=== PATIENT | male | born 1965 | race Caucasian/White ===

== ENCOUNTER 2021-04-24 22:28 | Inpatient (IN) | payer OTHER ==
[2021-04-24] MEDS ORDERED: ALBUTEROL SO4 2.5/IPRATROPIUM 0.5 INH SOL 3 ML VIAL.NEB. NEB ONE ×2 (23:04→23:10)
[2021-04-25] MEDS ORDERED: ASPIRIN 81 MG CHEWABLE TABLETS PO ONE (00:18)
[2021-04-25] MEDS ORDERED: PIPERACILLIN/TAZOB 4.5 GM 4.5 GM in DEXTROSE 5%-WATER 100 ML IVPB ONE (00:52)
[2021-04-25] MEDS ORDERED: VANCOMYCIN 1 GM in D5W (PRE-DOCKED) 1,000 MG/250 ML IVPB ONE (00:52)
[2021-04-25] MEDS ORDERED: ENOXAPARIN NA (PORCINE) 100 MG/1 ML DISP.SYRIN SQ ONE ×2 (00:53→01:00)
[2021-04-25] MEDS ORDERED: LACTATED RINGERS SOLUTION 1000 ML INFUS.BAG IV ONE ×2 (00:53→06:18)
[2021-04-25] MEDS ORDERED: ASPIRIN 81 MG CHEWABLE TABLETS ONE (00:59)
[2021-04-25] MEDS ORDERED: PIPERACILLIN/TAZOB 4.5 GM 4.5 GM/100 ML BAG IVPB ONE (01:00)
[2021-04-25] MEDS ORDERED: ACETAMINOPHEN 1000 MG/100 ML VIAL (NON FORMULARY) IVPB ONE ×3 (01:23→18:56)
[2021-04-25 01:24] LABS: BASO % 0.3 % (0-2.0); EOS % 0.1 % (0-4.5); HEMATOCRIT 26.7 % (35.4-49); LYMPH % 3.5 % (8-40); MCHC 33.6 g/dl (32.0-35.9); MEAN CELL VOLUME 83.5 fl (80-96); MEAN PLT VOLUME 7.1 fl (7.5-11.1); MONO % 1.8 % (3.8-10.2); NEUT % 94.3 % (42.8-82.8); PLATELET COUNT 133 10^3/uL (134-434); RDW 16.3 % (11.9-15.9); WHITE BLOOD COUNT 14.5 K/mm3 (4.0-10.0)
[2021-04-25] MEDS ORDERED: VANCOMYCIN 1 GRAM (PRE-DOCKED) 1,000 MG/250 ML BAG IVPB ONE (01:25)
[2021-04-25] MEDS ORDERED: methylPREDNISolone NA SUCC 125 MG/2 ML VIAL ONE (01:26)
[2021-04-25] MEDS ORDERED: methylPREDNISolone NA SUCC 125 MG/2 ML VIAL IVPUSH ONE (01:33)
[2021-04-25] MEDS ORDERED: ACETAMINOPHEN INJECTION 100 ML IVPB ONE (01:55)
[2021-04-25 01:56] LABS: CHLORIDE 113 mmol/L (98-107); SODIUM 145 mmol/L (136-145)
[2021-04-25 02:00] LABS: ALBUMIN 1.5 g/dl (3.4-5.0); ANION GAP 17 MMOL/L (8-16); BLOOD UREA NITROGEN 34.6 mg/dL (7-18); CALCIUM 7.9 mg/dL (8.5-10.1); CO2 15 mmol/L (21-32); GLUCOSE,RANDOM 111 mg/dL (74-106)
[2021-04-25 02:03] LABS: CREATININE 2.2 mg/dL (0.55-1.3); SGOT/AST 6 U/L (15-37)
[2021-04-25 02:05] LABS: BILIRUBIN,TOTAL 0.8 mg/dL (0.2-1); TOT PROT 5.1 g/dl (6.4-8.2)
[2021-04-25 02:06] LABS: ALK PHOS 104 U/L (45-117)
[2021-04-25 02:08] LABS: LACTIC ACID 8.4 mmol/L (0.4-2.0); N-TERMINAL BNP 7362.1 pg/ml (5-125)
[2021-04-25 02:18] LABS: SGPT/ALT < 6 U/L (13-61)
[2021-04-25] MEDS ORDERED: SODIUM CHLORIDE 0.9% 500 ML INFUS.BAG IV ONE (02:27)
[2021-04-25] MEDS ORDERED: POTASSIUM CHLORIDE TABS 20 MEQ TABLET.ER (FP) PO ONE (02:50)
[2021-04-25] MEDS ORDERED: POTASSIUM CHLORIDE ORAL LIQUID 20 MEQ/15 ML GT ONE (03:10)
[2021-04-25 03:44] LABS: ANISOCYTOSIS 2+; MACROCYTOSIS 1+; PLATELET ESTIMATE DECREASED; TEAR DROP CELLS 1+; TOXIC GRANULATION 2+
[2021-04-25 04:04] LABS: INR 1.4 (0.83-1.09); PROTHROMBIN TIME (PATIENT) 16.8 SEC (9.7-13.0)
[2021-04-25 04:07] LABS: ACTIVATED PTT 31.4 SECONDS (25.2-36.5)
[2021-04-25] MEDS ORDERED: NOREPINEPHRINE BITARTRATE 16,000 MCG in SODIUM CHLORIDE 484 ML IV SCH (04:15)
[2021-04-25 04:43] LABS: EPI CELLS 10 /uL (0-25.1); HYALINE CASTS 2 /uL (0-3.1); URINE APPEARANCE CLEAR; URINE BACTERIA 7 /uL (0-1359); URINE BILIRUBIN NEGATIVE (NEGATIVE); URINE COLOR YELLOW; URINE GLUCOSE (UA) NEGATIVE (NEGATIVE); URINE KETONE NEGATIVE (NEGATIVE); URINE LEUK ESTERASE NEGATIVE (NEGATIVE); URINE NITRITE NEGATIVE (NEGATIVE); URINE PROTEIN 1+ (NEGATIVE); URINE WBC 16 /uL (0-25.8)
[2021-04-25] MEDS ORDERED: POTASSIUM CHLORIDE ORAL LIQUID 20 MEQ/15 ML ONE (04:49)
[2021-04-25] MEDS ORDERED: KCL 10 MEQ IVPB 10 MEQ/100 ML INFUS.BAG IVPB ONE ×2 (04:49→05:41)
[2021-04-25] MEDS: KCL 10 MEQ IVPB 10 MEQ/100 ML INFUS.BAG IVPB SCH ×3 (05:05→08:33)
[2021-04-25] MEDS ORDERED: PIPERACILLIN/TAZOB 3.375 GM 3.375 GM/50 ML BAG IVPB ONE (05:25)
[2021-04-25] MEDS ORDERED: DEXTROSE 5%-0.45% SALINE 1,000 ML IV SCH ×2 (05:30)
[2021-04-25] MEDS: PIPERACILLIN/TAZOB 3.375 GM 3.375 GM in DEXTROSE 5%-WATER - 50 ML IVPB SCH ×4 (05:35→21:28)
[2021-04-25 05:46] LABS: INR 1.7 (0.83-1.09); PROTHROMBIN TIME (PATIENT) 20.3 SEC (9.7-13.0)
[2021-04-25 05:49] LABS: ACTIVATED PTT 55.3 SECONDS (25.2-36.5)
[2021-04-25 05:55] LABS: LACTIC ACID 11.1 mmol/L (0.4-2.0)
[2021-04-25 05:57] LABS: BASO % 0.1 % (0-2.0); CHLORIDE 110 mmol/L (98-107); HEMATOCRIT 24.3 % (35.4-49); HEMOGLOBIN 8.1 GM/dL (11.7-16.9); MCH 27.9 pg (25.7-33.7); MCHC 33.5 g/dl (32.0-35.9); MEAN CELL VOLUME 83.4 fl (80-96); MONO % 1.9 % (3.8-10.2); PLATELET COUNT 117 10^3/uL (134-434); RBC 2.92 M/mm3 (4.00-5.60); RDW 16.2 % (11.9-15.9); RETICULOCYTES 0.11 % (0.5-1.5); SODIUM 142 mmol/L (136-145); WHITE BLOOD COUNT 12.8 K/mm3 (4.0-10.0)
[2021-04-25 06:00] LABS: ALBUMIN 1.4 g/dl (3.4-5.0); ANION GAP 18 MMOL/L (8-16); CALCIUM 7.6 mg/dL (8.5-10.1); CO2 15 mmol/L (21-32)
[2021-04-25 06:01] LABS: BLOOD UREA NITROGEN 34.7 mg/dL (7-18); GLUCOSE,RANDOM 158 mg/dL (74-106); MAGNESIUM 1.6 mg/dL (1.8-2.4)
[2021-04-25 06:03] LABS: CREATININE 2.3 mg/dL (0.55-1.3); IRON SERUM 30 ug/dL (50-175); PHOSPHOROUS 2.1 mg/dL (2.5-4.9); SGPT/ALT < 6 U/L (13-61)
[2021-04-25 06:04] LABS: BILIRUBIN,TOTAL 0.9 mg/dL (0.2-1); TOTAL IRON BINDING CAPACITY 38 ug/dL (250-450)
[2021-04-25 06:05] LABS: TOT PROT 4.7 g/dl (6.4-8.2)
[2021-04-25 06:06] LABS: ALK PHOS 91 U/L (45-117)
[2021-04-25] MEDS ORDERED: MAGNESIUM SULF 50% (8.12 MEQ/2 ML-1 GM VIAL) IVPB ONE (06:24)
[2021-04-25 07:13] LABS: ARTERIAL BLD GAS O2 SATURATION 98.3 % (95-98); ARTERIAL BLOOD GAS BASE EXCESS -9.8 mmol/L (-2-2); ARTERIAL BLOOD GAS PO2 117.1 mmHg (80-100); ARTERIAL BLOOD GAS pH 7.389 (7.350-7.450)
[2021-04-25 07:15] LABS: ALLENS TEST POSITIVE
[2021-04-25 07:16] LABS: PT'S TEMP 98.6
[2021-04-25] MEDS ORDERED: ALBUTEROL SO4 HFA INHALER IH PRN (07:26)
[2021-04-25] MEDS ORDERED: SODIUM CHLORIDE 1,000 ML IV SCH (07:30)
[2021-04-25] MEDS ORDERED: POTASSIUM PHOSPHATE 30 MM in SODIUM CHLORIDE 500 ML IVPB ONE (07:30)
[2021-04-25 07:48] LABS: SGOT/AST 7 U/L (15-37)
[2021-04-25] MEDS: MUPIROCIN 2% TOPICAL OINTMENT FOR DECOLONIZATION NS SCH ×2 (10:29→21:54)
[2021-04-25] MEDS ORDERED: DEXTROSE 5%-WATER - 50 ML IVPB ONE ×3 (10:30→21:37)
[2021-04-25] MEDS ORDERED: PIPERACILLIN/TAZOBACTAM 3.375 GM VIAL IVPB ONE (10:30)
[2021-04-25] MEDS: BUDESONIDE/FORMETEROL FUMARATE 160/4.5 mcg INHALER IH SCH ×2 (11:00→22:07)
[2021-04-25 11:18] LABS: ANISOCYTOSIS 1+; MACROCYTOSIS 0; PLATELET ESTIMATE DECREASED
[2021-04-25] MEDS ORDERED: ALBUTEROL SO4 0.083% IH SOL 2.5 MG/3 ML VIAL.NEB. NEB PRN (11:26)
[2021-04-25 11:46] LABS: LACTIC ACID 8.9 mmol/L (0.4-2.0)
[2021-04-25] MEDS ORDERED: ONDANSETRON 4 MG/2 ML VIAL IVPUSH PRN (11:51)
[2021-04-25] MEDS ORDERED: SODIUM CHLORIDE 500 ML IV STA (11:53)
[2021-04-25] MEDS: ALBUTEROL SO4 2.5/IPRATROPIUM 0.5 INH SOL 3 ML VIAL.NEB. NEB SCH ×3 (12:45→20:15)
[2021-04-25] MEDS: HEPARIN NA (PORCINE) 5,000 UNITS/ML 1ML VIAL SQ SCH ×2 (15:00→21:55)
[2021-04-25] MEDS ORDERED: PIPERACILLIN/TAZOBACTAM 2.25 GM VIAL IVPB ONE ×2 (15:26→21:37)
[2021-04-25] MEDS: PIPERACILLIN/TAZOB 2.25 GM 2.25 GM in DEXTROSE 5%-WATER - 50 ML IVPB SCH ×2 (15:51→21:55)
[2021-04-25 16:26] LABS: LACTIC ACID 6.4 mmol/L (0.4-2.0)
[2021-04-25] MEDS ORDERED: PANTOPRAZOLE SODIUM 40 MG VIAL IVPUSH ONE (16:51)
[2021-04-25] MEDS ORDERED: PIPERACILLIN/TAZOB 3.375 GM 3.375 GM in DEXTROSE 5%-WATER - 50 ML IVPB SCH (18:00)
[2021-04-25] MEDS ORDERED: MORPHINE SULFATE 2 MG/ML VIAL IVPUSH ONE (21:47)
[2021-04-25] MEDS: CHLORHEXIDINE GLUCONATE 4% CLEANSER FOR DECOLONIZATION TP SCH (21:54)
[2021-04-25] MEDS: POLYETHYLENE GLYCOL (HEALTHYLAX) 3350 17 GM PACKET GT SCH (21:54)
[2021-04-25] MEDS ORDERED: PT OWN MED DRAWER 7, Y5N ONE (22:06)
[2021-04-25 22:45] LABS: LACTIC ACID 4.6 mmol/L (0.4-2.0)
[2021-04-26] MEDS: SODIUM CHLORIDE 1,000 ML IV SCH (02:00)
[2021-04-26] MEDS ORDERED: PIPERACILLIN/TAZOBACTAM 2.25 GM VIAL IVPB ONE ×4 (03:32→20:29)
[2021-04-26] MEDS ORDERED: DEXTROSE 5%-WATER - 50 ML IVPB ONE ×4 (03:32→20:29)
[2021-04-26] MEDS: PIPERACILLIN/TAZOB 2.25 GM 2.25 GM in DEXTROSE 5%-WATER - 50 ML IVPB SCH ×4 (03:39→21:52)
[2021-04-26] MEDS: POLYETHYLENE GLYCOL (HEALTHYLAX) 3350 17 GM PACKET GT SCH ×3 (05:28→21:55)
[2021-04-26] MEDS: HEPARIN NA (PORCINE) 5,000 UNITS/ML 1ML VIAL SQ SCH (05:29)
[2021-04-26 05:55] LABS: EOS % 0.1 % (0-4.5); HEMATOCRIT 22.3 % (35.4-49); HEMOGLOBIN 7.6 GM/dL (11.7-16.9); LYMPH % 5.1 % (8-40); MCH 27.8 pg (25.7-33.7); MCHC 33.8 g/dl (32.0-35.9); MEAN CELL VOLUME 82.2 fl (80-96); MEAN PLT VOLUME 6.6 fl (7.5-11.1); MONO % 1.9 % (3.8-10.2); NEUT % 92.9 % (42.8-82.8); PLATELET COUNT 85 10^3/uL (134-434); RBC 2.72 M/mm3 (4.00-5.60); RDW 16.6 % (11.9-15.9)
[2021-04-26 06:12] LABS: CHLORIDE 113 mmol/L (98-107); SODIUM 143 mmol/L (136-145)
[2021-04-26 06:17] LABS: ALBUMIN 1.1 g/dl (3.4-5.0); BLOOD UREA NITROGEN 32.2 mg/dL (7-18)
[2021-04-26 06:18] LABS: ANION GAP 10 MMOL/L (8-16); CO2 20 mmol/L (21-32); GLUCOSE,RANDOM 111 mg/dL (74-106); MAGNESIUM 1.9 mg/dL (1.8-2.4)
[2021-04-26 06:21] LABS: CREATININE 1.6 mg/dL (0.55-1.3); SGOT/AST 7 U/L (15-37); SGPT/ALT < 6 U/L (13-61)
[2021-04-26 06:22] LABS: BILIRUBIN,TOTAL 0.7 mg/dL (0.2-1); TOT PROT 4.3 g/dl (6.4-8.2)
[2021-04-26 06:23] LABS: ALK PHOS 82 U/L (45-117)
[2021-04-26 06:25] LABS: CALCIUM 6.8 mg/dL (8.5-10.1)
[2021-04-26] MEDS: ALBUTEROL SO4 2.5/IPRATROPIUM 0.5 INH SOL 3 ML VIAL.NEB. NEB SCH ×4 (07:15→20:23)
[2021-04-26] MEDS: MUPIROCIN 2% TOPICAL OINTMENT FOR DECOLONIZATION NS SCH ×2 (09:34→21:55)
[2021-04-26] MEDS: BUDESONIDE/FORMETEROL FUMARATE 160/4.5 mcg INHALER IH SCH ×2 (09:34→21:54)
[2021-04-26 10:05] LABS: ANISOCYTOSIS 1+; MACROCYTOSIS 0; OVALOCYTE 1+; PLATELET ESTIMATE DECREASED; TEAR DROP CELLS 1+
[2021-04-26] MEDS ORDERED: SODIUM CHLORIDE 1,000 ML IV STA (12:22)
[2021-04-26] MEDS ORDERED: SODIUM CHLORIDE 500 ML IV STA (16:46)
[2021-04-26] MEDS: AMINO ACIDS/PROTEIN HYDROLYS 30 ML LIQUID.PKT PO SCH (17:52)
[2021-04-26] MEDS ORDERED: MORPHINE SULFATE 2 MG/ML VIAL IVPUSH ONE (20:20)
[2021-04-26] MEDS: CHLORHEXIDINE GLUCONATE 4% CLEANSER FOR DECOLONIZATION TP SCH (21:55)
[2021-04-27] MEDS: SODIUM CHLORIDE 1,000 ML IV SCH (01:22)
[2021-04-27] MEDS ORDERED: PIPERACILLIN/TAZOBACTAM 2.25 GM VIAL IVPB ONE ×4 (02:11→21:02)
[2021-04-27] MEDS ORDERED: DEXTROSE 5%-WATER - 50 ML IVPB ONE ×4 (02:11→21:03)
[2021-04-27] MEDS: PIPERACILLIN/TAZOB 2.25 GM 2.25 GM in DEXTROSE 5%-WATER - 50 ML IVPB SCH ×4 (02:13→21:36)
[2021-04-27] MEDS: POLYETHYLENE GLYCOL (HEALTHYLAX) 3350 17 GM PACKET GT SCH ×3 (06:05→21:38)
[2021-04-27] MEDS: ALBUTEROL SO4 2.5/IPRATROPIUM 0.5 INH SOL 3 ML VIAL.NEB. NEB SCH ×4 (09:15→20:15)
[2021-04-27] MEDS: AMINO ACIDS/PROTEIN HYDROLYS 30 ML LIQUID.PKT PO SCH ×2 (10:06→17:11)
[2021-04-27] MEDS: BUDESONIDE/FORMETEROL FUMARATE 160/4.5 mcg INHALER IH SCH ×2 (10:08→21:40)
[2021-04-27] MEDS: MUPIROCIN 2% TOPICAL OINTMENT FOR DECOLONIZATION NS SCH ×2 (10:09→21:37)
[2021-04-27] MEDS ORDERED: SODIUM CHLORIDE 1,000 ML IV SCH (12:05)
[2021-04-27] MEDS ORDERED: MORPHINE SULFATE 2 MG/ML VIAL IVPUSH PRN (12:07)
[2021-04-27] MEDS: MORPHINE SULFATE 2 MG/ML VIAL IVPUSH PRN ×2 (12:32→21:41)
[2021-04-27] MEDS: CHLORHEXIDINE GLUCONATE 4% CLEANSER FOR DECOLONIZATION TP SCH (21:38)
[2021-04-28] MEDS ORDERED: PIPERACILLIN/TAZOBACTAM 2.25 GM VIAL IVPB ONE ×3 (00:43→14:10)
[2021-04-28] MEDS ORDERED: DEXTROSE 5%-WATER - 50 ML IVPB ONE ×3 (00:43→14:10)
[2021-04-28] MEDS: PIPERACILLIN/TAZOB 2.25 GM 2.25 GM in DEXTROSE 5%-WATER - 50 ML IVPB SCH ×3 (03:29→14:11)
[2021-04-28] MEDS: MORPHINE SULFATE 2 MG/ML VIAL IVPUSH PRN ×4 (04:34→23:04)
[2021-04-28] MEDS: POLYETHYLENE GLYCOL (HEALTHYLAX) 3350 17 GM PACKET GT SCH ×3 (06:17→23:04)
[2021-04-28 07:39] LABS: EOS % 0.1 % (0-4.5); HEMATOCRIT 22.7 % (35.4-49); HEMOGLOBIN 7.6 GM/dL (11.7-16.9); LYMPH % 12.7 % (8-40); MCH 27.6 pg (25.7-33.7); MCHC 33.4 g/dl (32.0-35.9); MEAN CELL VOLUME 82.6 fl (80-96); MEAN PLT VOLUME 6.8 fl (7.5-11.1); MONO % 1.2 % (3.8-10.2); PLATELET COUNT 38 10^3/uL (134-434); RBC 2.75 M/mm3 (4.00-5.60); RDW 16.7 % (11.9-15.9); WHITE BLOOD COUNT 6.6 K/mm3 (4.0-10.0)
[2021-04-28 07:42] LABS: CHLORIDE 121 mmol/L (98-107); SODIUM 150 mmol/L (136-145)
[2021-04-28 07:45] LABS: ANION GAP 9 MMOL/L (8-16); BLOOD UREA NITROGEN 31.9 mg/dL (7-18); CO2 20 mmol/L (21-32); GLUCOSE,RANDOM 105 mg/dL (74-106)
[2021-04-28 07:48] LABS: CREATININE 1.4 mg/dL (0.55-1.3); SGOT/AST 11 U/L (15-37); SGPT/ALT 8 U/L (13-61)
[2021-04-28 07:49] LABS: BILIRUBIN,TOTAL 0.4 mg/dL (0.2-1)
[2021-04-28 07:50] LABS: TOT PROT 4.4 g/dl (6.4-8.2)
[2021-04-28 07:53] LABS: ALK PHOS 140 U/L (45-117); CALCIUM 6.1 mg/dL (8.5-10.1)
[2021-04-28] MEDS: ALBUTEROL SO4 2.5/IPRATROPIUM 0.5 INH SOL 3 ML VIAL.NEB. NEB SCH ×4 (08:40→20:11)
[2021-04-28] MEDS: AMINO ACIDS/PROTEIN HYDROLYS 30 ML LIQUID.PKT PO SCH (09:09)
[2021-04-28] MEDS: MUPIROCIN 2% TOPICAL OINTMENT FOR DECOLONIZATION NS SCH (09:10)
[2021-04-28] MEDS: BUDESONIDE/FORMETEROL FUMARATE 160/4.5 mcg INHALER IH SCH ×2 (09:12→23:04)
[2021-04-28] MEDS: SODIUM CHLORIDE 0.45% 1,000 ML IV SCH (12:45)
[2021-04-28] MEDS: CALCITRIOL 0.25 MCG CAPSULE (FP) PO SCH (14:07)
[2021-04-28] MEDS ORDERED: ALBUTEROL SO4 0.083% IH SOL 2.5 MG/3 ML VIAL.NEB. NEB PRN (15:14)
[2021-04-28] MEDS: LORazepam 2 MG/ML SDV VIAL IVPUSH PRN (16:24)
[2021-04-28] MEDS: AMINO ACIDS/PROTEIN HYDROLYS 30 ML LIQUID.PKT GT SCH (17:14)
[2021-04-28] MEDS ORDERED: PIPERACILLIN/TAZOB 2.25 GM 2.25 GM in DEXTROSE 5%-WATER - 50 ML IVPB SCH (21:00)
[2021-04-29] MEDS ORDERED: DEXTROSE 5%-WATER 100 ML IVPB ONE ×2 (02:03→09:59)
[2021-04-29] MEDS ORDERED: MEROPENEM 1 GM VIAL (RESTRICTED TO ID) IVPB ONE ×2 (02:03→09:58)
[2021-04-29] MEDS: MEROPENEM 1 GM in DEXTROSE 5%-WATER 100 ML IVPB SCH ×3 (02:07→18:37)
[2021-04-29] MEDS: POLYETHYLENE GLYCOL (HEALTHYLAX) 3350 17 GM PACKET GT SCH ×4 (07:40→21:10)
[2021-04-29 07:50] LABS: BASO % 0.2 % (0-2.0); EOS % 0.3 % (0-4.5); HEMOGLOBIN 7.8 GM/dL (11.7-16.9); LYMPH % 16.1 % (8-40); MCH 27.7 pg (25.7-33.7); MEAN CELL VOLUME 81.5 fl (80-96); MEAN PLT VOLUME 8.2 fl (7.5-11.1); NEUT % 81.4 % (42.8-82.8); RBC 2.82 M/mm3 (4.00-5.60); RDW 17.4 % (11.9-15.9); WHITE BLOOD COUNT 6.7 K/mm3 (4.0-10.0)
[2021-04-29 07:53] LABS: CHLORIDE 123 mmol/L (98-107); SODIUM 150 mmol/L (136-145)
[2021-04-29 07:55] LABS: PLATELET COUNT 31 10^3/uL (134-434)
[2021-04-29 07:56] LABS: ALBUMIN 1.1 g/dl (3.4-5.0); ANION GAP 9 MMOL/L (8-16); BLOOD UREA NITROGEN 32.4 mg/dL (7-18); CO2 18 mmol/L (21-32); GLUCOSE,RANDOM 94 mg/dL (74-106); MAGNESIUM 2.1 mg/dL (1.8-2.4)
[2021-04-29 07:59] LABS: CREATININE 1.5 mg/dL (0.55-1.3); PHOSPHOROUS 2.4 mg/dL (2.5-4.9); SGOT/AST 10 U/L (15-37); SGPT/ALT 8 U/L (13-61)
[2021-04-29 08:00] LABS: BILIRUBIN,TOTAL 0.4 mg/dL (0.2-1); TOT PROT 4.8 g/dl (6.4-8.2)
[2021-04-29 08:02] LABS: ALK PHOS 135 U/L (45-117)
[2021-04-29 08:23] LABS: CALCIUM 6.6 mg/dL (8.5-10.1)
[2021-04-29] MEDS: ALBUTEROL SO4 2.5/IPRATROPIUM 0.5 INH SOL 3 ML VIAL.NEB. NEB SCH ×3 (08:40→20:47)
[2021-04-29] MEDS ORDERED: AMINO ACIDS 4.25%/D5W 1,000 ML IV SCH (10:00)
[2021-04-29] MEDS: AMINO ACIDS/PROTEIN HYDROLYS 30 ML LIQUID.PKT GT SCH ×2 (10:07→17:06)
[2021-04-29] MEDS: AMINO ACIDS 4.25%/D5W 1,000 ML IV SCH (10:11)
[2021-04-29] MEDS: CALCITRIOL 0.25 MCG CAPSULE (FP) PO SCH (10:16)
[2021-04-29] MEDS: BUDESONIDE/FORMETEROL FUMARATE 160/4.5 mcg INHALER IH SCH ×2 (10:17→21:11)
[2021-04-29 14:12] VITALS: BMI 37.2
[2021-04-29] MEDS: SODIUM CHLORIDE 0.45% 1,000 ML IV SCH (14:44)
[2021-04-29] MEDS: MORPHINE SULFATE 2 MG/ML VIAL IVPUSH PRN (23:30)
[2021-04-30] MEDS ORDERED: DEXTROSE 5%-WATER 100 ML IVPB ONE ×3 (01:02→18:40)
[2021-04-30] MEDS ORDERED: MEROPENEM 1 GM VIAL (RESTRICTED TO ID) IVPB ONE ×3 (01:02→18:40)
[2021-04-30] MEDS: MEROPENEM 1 GM in DEXTROSE 5%-WATER 100 ML IVPB SCH ×3 (01:05→18:49)
[2021-04-30] MEDS: LORazepam 2 MG/ML SDV VIAL IVPUSH PRN ×3 (01:23→23:20)
[2021-04-30] MEDS: POLYETHYLENE GLYCOL (HEALTHYLAX) 3350 17 GM PACKET GT SCH ×3 (05:38→21:29)
[2021-04-30] MEDS: ALBUTEROL SO4 2.5/IPRATROPIUM 0.5 INH SOL 3 ML VIAL.NEB. NEB SCH ×4 (08:30→20:41)
[2021-04-30] MEDS: AMINO ACIDS 4.25%/D5W 1,000 ML IV SCH (10:14)
[2021-04-30] MEDS: AMINO ACIDS/PROTEIN HYDROLYS 30 ML LIQUID.PKT GT SCH ×2 (10:14→18:49)
[2021-04-30] MEDS: BUDESONIDE/FORMETEROL FUMARATE 160/4.5 mcg INHALER IH SCH ×2 (10:21→21:29)
[2021-04-30] MEDS: CALCITRIOL 0.25 MCG CAPSULE (FP) PO SCH (10:21)
[2021-04-30] MEDS: SODIUM CHLORIDE 0.45% 1,000 ML IV SCH (12:15)
[2021-04-30 16:49] LABS: BASO % 0.1 % (0-2.0); EOS % 0.5 % (0-4.5); HEMATOCRIT 21.9 % (35.4-49); HEMOGLOBIN 7.6 GM/dL (11.7-16.9); LYMPH % 19.9 % (8-40); MCH 27.6 pg (25.7-33.7); MCHC 34.6 g/dl (32.0-35.9); MEAN PLT VOLUME 8.7 fl (7.5-11.1); MONO % 2.4 % (3.8-10.2); NEUT % 77.1 % (42.8-82.8); RBC 2.74 M/mm3 (4.00-5.60); RDW 16.9 % (11.9-15.9)
[2021-04-30 16:54] LABS: PLATELET COUNT 25 10^3/uL (134-434)
[2021-04-30 17:14] LABS: ANISOCYTOSIS 0; MACROCYTOSIS 0; PLATELET ESTIMATE DECREASED
[2021-04-30 18:18] LABS: EOS % 0.4 % (0-4.5); HEMATOCRIT 22.1 % (35.4-49); HEMOGLOBIN 7.6 GM/dL (11.7-16.9); LYMPH % 19.3 % (8-40); MCH 28.1 pg (25.7-33.7); MCHC 34.6 g/dl (32.0-35.9); MEAN CELL VOLUME 81.3 fl (80-96); MEAN PLT VOLUME 8.3 fl (7.5-11.1); MONO % 1.8 % (3.8-10.2); NEUT % 78.5 % (42.8-82.8); RBC 2.72 M/mm3 (4.00-5.60); RDW 17.3 % (11.9-15.9); WHITE BLOOD COUNT 4.9 K/mm3 (4.0-10.0)
[2021-04-30 18:27] LABS: PLATELET COUNT 26 10^3/uL (134-434)
[2021-04-30 18:33] LABS: INR 1.36 (0.83-1.09); PROTHROMBIN TIME (PATIENT) 16.3 SEC (9.7-13.0)
[2021-04-30 18:35] LABS: ACTIVATED PTT 25.1 SECONDS (25.2-36.5)
[2021-04-30 19:57] LABS: ANISOCYTOSIS 1+; MACROCYTOSIS 0; PLATELET ESTIMATE DECREASED
[2021-05-01] MEDS: MORPHINE SULFATE 2 MG/ML VIAL IVPUSH PRN ×2 (00:25→06:11)
[2021-05-01] MEDS ORDERED: MEROPENEM 1 GM VIAL (RESTRICTED TO ID) IVPB ONE (01:51)
[2021-05-01] MEDS ORDERED: DEXTROSE 5%-WATER 100 ML IVPB ONE (01:51)
[2021-05-01] MEDS: MEROPENEM 1 GM in DEXTROSE 5%-WATER 100 ML IVPB SCH (01:53)
[2021-05-01] MEDS: POLYETHYLENE GLYCOL (HEALTHYLAX) 3350 17 GM PACKET GT SCH ×3 (06:10→21:14)
[2021-05-01] MEDS: ALBUTEROL SO4 2.5/IPRATROPIUM 0.5 INH SOL 3 ML VIAL.NEB. NEB SCH ×4 (07:26→20:10)
[2021-05-01 07:57] LABS: BASO % 0.2 % (0-2.0); EOS % 0.7 % (0-4.5); HEMATOCRIT 21.9 % (35.4-49); HEMOGLOBIN 7.6 GM/dL (11.7-16.9); LYMPH % 26.7 % (8-40); MCH 27.6 pg (25.7-33.7); MCHC 34.4 g/dl (32.0-35.9); MEAN CELL VOLUME 80.2 fl (80-96); MEAN PLT VOLUME 8.9 fl (7.5-11.1); MONO % 2.6 % (3.8-10.2); NEUT % 69.8 % (42.8-82.8); RBC 2.74 M/mm3 (4.00-5.60); RDW 16.6 % (11.9-15.9); WHITE BLOOD COUNT 4.3 K/mm3 (4.0-10.0)
[2021-05-01 08:20] LABS: ALBUMIN 1.2 g/dl (3.4-5.0); BLOOD UREA NITROGEN 31.8 mg/dL (7-18); CALCIUM 7.3 mg/dL (8.5-10.1)
[2021-05-01 08:22] LABS: BILIRUBIN,TOTAL 0.4 mg/dL (0.2-1); TOT PROT 4.6 g/dl (6.4-8.2)
[2021-05-01 08:23] LABS: CREATININE 1.4 mg/dL (0.55-1.3)
[2021-05-01 08:49] LABS: PLATELET COUNT 26 10^3/uL (134-434)
[2021-05-01] MEDS ORDERED: POTASSIUM CHLORIDE 10 MEQ in AMINO ACIDS 4.25%/D5W 1,000 ML IV SCH ×2 (09:40→11:08)
[2021-05-01] MEDS: AMINO ACIDS/PROTEIN HYDROLYS 30 ML LIQUID.PKT GT SCH ×2 (10:16→16:57)
[2021-05-01] MEDS: CALCITRIOL 0.25 MCG CAPSULE (FP) PO SCH (10:16)
[2021-05-01] MEDS: BUDESONIDE/FORMETEROL FUMARATE 160/4.5 mcg INHALER IH SCH ×2 (10:17→21:14)
[2021-05-01] MEDS ORDERED: oxyCODONE HCL 5 MG TABLET GT PRN (10:41)
[2021-05-01] MEDS ORDERED: clonazePAM 0.5 MG ODT TABLETS SL PRN (10:47)
[2021-05-01 11:34] LABS: ANISOCYTOSIS 1+; MACROCYTOSIS 0; OVALOCYTE 1+; PLATELET ESTIMATE DECREASED; TEAR DROP CELLS 1+; TOXIC GRANULATION 2+
[2021-05-01] MEDS ORDERED: clonazePAM 0.25 MG ODT TABLETS SL PRN (12:09)
[2021-05-01] MEDS ORDERED: PT OWN MED DRAWER 7, Y5N ONE (12:20)
[2021-05-01] MEDS: ESCITALOPRAM OXALATE 5 MG/5 ML GT SCH (12:32)
[2021-05-02] MEDS: POLYETHYLENE GLYCOL (HEALTHYLAX) 3350 17 GM PACKET GT SCH ×3 (06:08→21:57)
[2021-05-02] MEDS: ALBUTEROL SO4 2.5/IPRATROPIUM 0.5 INH SOL 3 ML VIAL.NEB. NEB SCH ×4 (07:56→20:25)
[2021-05-02 08:33] LABS: BASO % 0.1 % (0-2.0); EOS % 1.1 % (0-4.5); HEMOGLOBIN 7.5 GM/dL (11.7-16.9); LYMPH % 24.2 % (8-40); MCH 28.1 pg (25.7-33.7); MCHC 34.2 g/dl (32.0-35.9); MEAN CELL VOLUME 82.1 fl (80-96); MEAN PLT VOLUME 9.1 fl (7.5-11.1); MONO % 2.9 % (3.8-10.2); NEUT % 71.7 % (42.8-82.8); RBC 2.68 M/mm3 (4.00-5.60); RDW 17.3 % (11.9-15.9); WHITE BLOOD COUNT 4.2 K/mm3 (4.0-10.0)
[2021-05-02 09:05] LABS: ALBUMIN 1.3 g/dl (3.4-5.0); BLOOD UREA NITROGEN 40.6 mg/dL (7-18); CALCIUM 7.8 mg/dL (8.5-10.1)
[2021-05-02 09:06] LABS: MAGNESIUM 2.1 mg/dL (1.8-2.4)
[2021-05-02 09:07] LABS: CREATININE 1.8 mg/dL (0.55-1.3)
[2021-05-02 09:08] LABS: BILIRUBIN,TOTAL 0.4 mg/dL (0.2-1); TOT PROT 4.6 g/dl (6.4-8.2)
[2021-05-02 09:09] LABS: PLATELET COUNT 32 10^3/uL (134-434)
[2021-05-02] MEDS ORDERED: PT OWN MED DRAWER 7, Y5N ONE (09:57)
[2021-05-02] MEDS: AMINO ACIDS/PROTEIN HYDROLYS 30 ML LIQUID.PKT GT SCH ×2 (10:41→18:45)
[2021-05-02] MEDS: CALCITRIOL 0.25 MCG CAPSULE (FP) PO SCH (10:42)
[2021-05-02] MEDS: BUDESONIDE/FORMETEROL FUMARATE 160/4.5 mcg INHALER IH SCH ×2 (10:42→22:02)
[2021-05-02] MEDS: ESCITALOPRAM OXALATE 5 MG/5 ML GT SCH (10:42)
[2021-05-03] MEDS: AMINO ACIDS 4.25%/D5W 1,000 ML IV SCH ×4 (00:25→22:31)
[2021-05-03] MEDS: POLYETHYLENE GLYCOL (HEALTHYLAX) 3350 17 GM PACKET GT SCH ×3 (06:34→22:29)
[2021-05-03] MEDS: ALBUTEROL SO4 2.5/IPRATROPIUM 0.5 INH SOL 3 ML VIAL.NEB. NEB SCH ×2 (08:00→11:31)
[2021-05-03] MEDS: AMINO ACIDS/PROTEIN HYDROLYS 30 ML LIQUID.PKT GT SCH ×2 (10:44→17:25)
[2021-05-03] MEDS: ESCITALOPRAM OXALATE 5 MG/5 ML GT SCH (10:48)
[2021-05-03] MEDS: BUDESONIDE/FORMETEROL FUMARATE 160/4.5 mcg INHALER IH SCH ×4 (10:49→22:36)
[2021-05-03] MEDS ORDERED: PT OWN MED DRAWER 7, Y5N ONE (10:51)
[2021-05-03 14:15] LABS: ALBUMIN 1.3 g/dl (3.4-5.0); BLOOD UREA NITROGEN 47.1 mg/dL (7-18)
[2021-05-03 14:18] LABS: CREATININE 1.7 mg/dL (0.55-1.3)
[2021-05-03 14:19] LABS: BILIRUBIN,TOTAL 0.6 mg/dL (0.2-1)
[2021-05-03 14:20] LABS: TOT PROT 4.4 g/dl (6.4-8.2)
[2021-05-03 14:35] LABS: BASO % 0.3 % (0-2.0); EOS % 4.2 % (0-4.5); HEMATOCRIT 19.7 % (35.4-49); LYMPH % 24.1 % (8-40); MCH 27.5 pg (25.7-33.7); MCHC 33.7 g/dl (32.0-35.9); MEAN CELL VOLUME 81.7 fl (80-96); MEAN PLT VOLUME 8.4 fl (7.5-11.1); MONO % 4.7 % (3.8-10.2); NEUT % 66.7 % (42.8-82.8); PLATELET COUNT 47 10^3/uL (134-434); RBC 2.42 M/mm3 (4.00-5.60); RDW 17.2 % (11.9-15.9); WHITE BLOOD COUNT 3.7 K/mm3 (4.0-10.0)
[2021-05-03 14:39] LABS: HEMOGLOBIN 6.6 GM/dL (11.7-16.9)
[2021-05-03 14:59] LABS: ANISOCYTOSIS 1+; MACROCYTOSIS 0; PLATELET ESTIMATE DECREASED
[2021-05-04] MEDS: AMINO ACIDS/PROTEIN HYDROLYS 30 ML LIQUID.PKT GT SCH ×2 (09:16→16:42)
[2021-05-04] MEDS: ESCITALOPRAM OXALATE 5 MG/5 ML GT SCH (10:29)
[2021-05-04] MEDS: BUDESONIDE/FORMETEROL FUMARATE 160/4.5 mcg INHALER IH SCH ×2 (11:57→22:43)
[2021-05-04 11:59] LABS: HEMATOCRIT 24.4 % (35.4-49); HEMOGLOBIN 8.6 GM/dL (11.7-16.9); MCH 29.3 pg (25.7-33.7); MCHC 35.3 g/dl (32.0-35.9); MEAN PLT VOLUME 8.1 fl (7.5-11.1); PLATELET COUNT 55 10^3/uL (134-434); RBC 2.94 M/mm3 (4.00-5.60); RDW 16.7 % (11.9-15.9); WHITE BLOOD COUNT 3.5 K/mm3 (4.0-10.0)
[2021-05-04 12:29] LABS: ALBUMIN 1.3 g/dl (3.4-5.0); BLOOD UREA NITROGEN 45.7 mg/dL (7-18)
[2021-05-04 12:32] LABS: CREATININE 1.5 mg/dL (0.55-1.3)
[2021-05-04 12:33] LABS: BILIRUBIN,TOTAL 0.8 mg/dL (0.2-1)
[2021-05-04 12:34] LABS: TOT PROT 4.3 g/dl (6.4-8.2)
[2021-05-04] MEDS: POLYETHYLENE GLYCOL (HEALTHYLAX) 3350 17 GM PACKET GT SCH ×2 (13:32→22:41)
[2021-05-04] MEDS: ERTAPENEM SODIUM 1 GM in SODIUM CHLORIDE 50 ML IVPB SCH (15:34)
[2021-05-04] MEDS: AMINO ACIDS 4.25%/D5W 1,000 ML IV SCH (19:08)
[2021-05-04] MEDS ORDERED: ACETAMINOPHEN 1000 MG/100 ML VIAL (NON FORMULARY) IVPB ONE (23:29)
[2021-05-05] MEDS: POLYETHYLENE GLYCOL (HEALTHYLAX) 3350 17 GM PACKET GT SCH ×3 (06:56→22:31)
[2021-05-05] MEDS: AMINO ACIDS/PROTEIN HYDROLYS 30 ML LIQUID.PKT GT SCH ×2 (08:17→17:20)
[2021-05-05] MEDS: ONDANSETRON 4 MG/2 ML VIAL IVPUSH PRN (08:49)
[2021-05-05] MEDS: ERTAPENEM SODIUM 1 GM in SODIUM CHLORIDE 50 ML IVPB SCH (09:49)
[2021-05-05] MEDS: ESCITALOPRAM OXALATE 5 MG/5 ML GT SCH (09:50)
[2021-05-05] MEDS: AMINO ACIDS 4.25%/D5W 1,000 ML IV SCH ×2 (09:51→14:37)
[2021-05-05] MEDS: BUDESONIDE/FORMETEROL FUMARATE 160/4.5 mcg INHALER IH SCH ×2 (09:52→22:32)
[2021-05-05] MEDS ORDERED: FAT EMULSIONS 20% 250 ML PREMIX INFUS.BAG IV SCH (14:02)
[2021-05-05 14:20] LABS: HEMATOCRIT 26.9 % (35.4-49); HEMOGLOBIN 9.2 GM/dL (11.7-16.9); MCH 28.9 pg (25.7-33.7); MCHC 34.2 g/dl (32.0-35.9); MEAN CELL VOLUME 84.5 fl (80-96); MEAN PLT VOLUME 8.4 fl (7.5-11.1); PLATELET COUNT 81 10^3/uL (134-434); RBC 3.18 M/mm3 (4.00-5.60); RDW 16.7 % (11.9-15.9); WHITE BLOOD COUNT 4.2 K/mm3 (4.0-10.0)
[2021-05-05] MEDS: MORPHINE SULFATE 2 MG/ML VIAL IVPUSH PRN ×2 (14:38→22:47)
[2021-05-05 14:46] LABS: ALBUMIN 1.4 g/dl (3.4-5.0); CALCIUM 8.3 mg/dL (8.5-10.1)
[2021-05-05 14:47] LABS: BLOOD UREA NITROGEN 47.6 mg/dL (7-18)
[2021-05-05 14:50] LABS: CREATININE 1.4 mg/dL (0.55-1.3)
[2021-05-05 14:51] LABS: BILIRUBIN,TOTAL 0.6 mg/dL (0.2-1); TOT PROT 4.7 g/dl (6.4-8.2)
[2021-05-05] MEDS: ACETAMINOPHEN 1000 MG/100 ML VIAL (NON FORMULARY) IVPB PRN (18:45)
[2021-05-05] MEDS: FAT EMULSION/OLIVE/SOY/PHOSPHO 250 ML IV SCH (22:31)
[2021-05-06] MEDS: MORPHINE SULFATE 2 MG/ML VIAL IVPUSH PRN ×2 (05:36→15:39)
[2021-05-06] MEDS: POLYETHYLENE GLYCOL (HEALTHYLAX) 3350 17 GM PACKET GT SCH ×4 (06:00→21:43)
[2021-05-06] MEDS: AMINO ACIDS/PROTEIN HYDROLYS 30 ML LIQUID.PKT GT SCH ×2 (07:21→17:55)
[2021-05-06 08:12] LABS: BASO % 0.2 % (0-2.0); EOS % 2.4 % (0-4.5); HEMATOCRIT 24.4 % (35.4-49); HEMOGLOBIN 8.6 GM/dL (11.7-16.9); LYMPH % 23.1 % (8-40); MCH 29.6 pg (25.7-33.7); MCHC 35.2 g/dl (32.0-35.9); MEAN CELL VOLUME 84.2 fl (80-96); MEAN PLT VOLUME 7.4 fl (7.5-11.1); MONO % 6.6 % (3.8-10.2); NEUT % 67.7 % (42.8-82.8); PLATELET COUNT 89 10^3/uL (134-434); WHITE BLOOD COUNT 3.3 K/mm3 (4.0-10.0)
[2021-05-06 08:30] LABS: BLOOD UREA NITROGEN 47.1 mg/dL (7-18)
[2021-05-06 08:31] LABS: ALBUMIN 1.3 g/dl (3.4-5.0)
[2021-05-06 08:32] LABS: CREATININE 1.3 mg/dL (0.55-1.3)
[2021-05-06 08:33] LABS: PHOSPHOROUS 3.1 mg/dL (2.5-4.9)
[2021-05-06 08:34] LABS: BILIRUBIN,TOTAL 0.5 mg/dL (0.2-1); TOT PROT 4.5 g/dl (6.4-8.2)
[2021-05-06 08:37] LABS: CALCIUM 7.7 mg/dL (8.5-10.1)
[2021-05-06] MEDS ORDERED: PT OWN MED DRAWER 7, Y5N ONE ×2 (09:13→20:54)
[2021-05-06] MEDS: ERTAPENEM SODIUM 1 GM in SODIUM CHLORIDE 50 ML IVPB SCH (09:48)
[2021-05-06] MEDS: ESCITALOPRAM OXALATE 5 MG/5 ML GT SCH (09:49)
[2021-05-06] MEDS: BUDESONIDE/FORMETEROL FUMARATE 160/4.5 mcg INHALER IH SCH ×2 (09:59→21:46)
[2021-05-06 10:45] LABS: ANISOCYTOSIS 0; HELMET CELLS 0; HOWELL-JOLLY BODIES 0; MACROCYTOSIS 0; OVALOCYTE 0; PLATELET ESTIMATE DECREASED; ROULEAU 0; SICKELED CELLS 0; TARGET CELLS 0; TEAR DROP CELLS 0; TOXIC GRANULATION 0
[2021-05-06] MEDS: ACETAMINOPHEN 1000 MG/100 ML VIAL (NON FORMULARY) IVPB PRN (11:04)
[2021-05-06] MEDS: AMINO ACIDS 4.25%/D5W 1,000 ML IV SCH (15:56)
[2021-05-06] MEDS: FAT EMULSION/OLIVE/SOY/PHOSPHO 250 ML IV SCH (21:44)
[2021-05-07] MEDS: POLYETHYLENE GLYCOL (HEALTHYLAX) 3350 17 GM PACKET GT SCH ×3 (05:17→21:44)
[2021-05-07] MEDS: AMINO ACIDS 4.25%/D5W 1,000 ML IV SCH ×2 (05:25→15:23)
[2021-05-07] MEDS: AMINO ACIDS/PROTEIN HYDROLYS 30 ML LIQUID.PKT GT SCH ×2 (08:27→17:25)
[2021-05-07 08:58] LABS: BLOOD UREA NITROGEN 48.9 mg/dL (7-18); CALCIUM 7.8 mg/dL (8.5-10.1); CREATININE 1.3 mg/dL (0.55-1.3); MAGNESIUM 1.6 mg/dL (1.8-2.4)
[2021-05-07 09:00] LABS: PHOSPHOROUS 3.1 mg/dL (2.5-4.9)
[2021-05-07] MEDS: ESCITALOPRAM OXALATE 5 MG/5 ML GT SCH (10:27)
[2021-05-07] MEDS ORDERED: PT OWN MED DRAWER 7, Y5N ONE ×2 (10:30→21:21)
[2021-05-07] MEDS: MORPHINE SULFATE 2 MG/ML VIAL IVPUSH PRN ×2 (10:41→22:11)
[2021-05-07] MEDS: ERTAPENEM SODIUM 1 GM in SODIUM CHLORIDE 50 ML IVPB SCH (10:43)
[2021-05-07] MEDS: BUDESONIDE/FORMETEROL FUMARATE 160/4.5 mcg INHALER IH SCH ×2 (10:49→21:45)
[2021-05-07] MEDS ORDERED: MAGNESIUM 2GM/50ML STERILE WATER IVPB IVPB ONE (14:00)
[2021-05-07] MEDS: FAT EMULSION/OLIVE/SOY/PHOSPHO 250 ML IV SCH (21:46)
[2021-05-08] MEDS: POLYETHYLENE GLYCOL (HEALTHYLAX) 3350 17 GM PACKET GT SCH ×3 (06:53→21:46)
[2021-05-08 07:41] LABS: BASO % 1.1 % (0-2.0); EOS % 2.2 % (0-4.5); HEMATOCRIT 25.5 % (35.4-49); HEMOGLOBIN 8.9 GM/dL (11.7-16.9); LYMPH % 20.8 % (8-40); MCH 28.8 pg (25.7-33.7); MCHC 34.9 g/dl (32.0-35.9); MEAN CELL VOLUME 82.5 fl (80-96); MEAN PLT VOLUME 7.2 fl (7.5-11.1); MONO % 8.9 % (3.8-10.2); PLATELET COUNT 129 10^3/uL (134-434); RBC 3.09 M/mm3 (4.00-5.60); RDW 16.9 % (11.9-15.9); WHITE BLOOD COUNT 3.2 K/mm3 (4.0-10.0)
[2021-05-08 08:12] LABS: ALBUMIN 1.4 g/dl (3.4-5.0); BLOOD UREA NITROGEN 49.4 mg/dL (7-18); CALCIUM 7.9 mg/dL (8.5-10.1)
[2021-05-08 08:14] LABS: CREATININE 1.2 mg/dL (0.55-1.3)
[2021-05-08 08:16] LABS: BILIRUBIN,TOTAL 0.6 mg/dL (0.2-1); TOT PROT 4.9 g/dl (6.4-8.2)
[2021-05-08 08:45] LABS: ANISOCYTOSIS 0; HELMET CELLS 0; HOWELL-JOLLY BODIES 0; MACROCYTOSIS 0; OVALOCYTE 0; PLATELET ESTIMATE DECREASED; ROULEAU 0; SICKELED CELLS 0; TARGET CELLS 0; TEAR DROP CELLS 0; TOXIC GRANULATION 0
[2021-05-08] MEDS: AMINO ACIDS/PROTEIN HYDROLYS 30 ML LIQUID.PKT GT SCH ×2 (09:08→16:34)
[2021-05-08] MEDS ORDERED: PT OWN MED DRAWER 7, Y5N ONE ×3 (10:41→21:48)
[2021-05-08] MEDS: MORPHINE SULFATE 2 MG/ML VIAL IVPUSH PRN ×2 (10:51→20:18)
[2021-05-08] MEDS: ERTAPENEM SODIUM 1 GM in SODIUM CHLORIDE 50 ML IVPB SCH (10:53)
[2021-05-08] MEDS: ESCITALOPRAM OXALATE 5 MG/5 ML GT SCH (10:54)
[2021-05-08] MEDS: BUDESONIDE/FORMETEROL FUMARATE 160/4.5 mcg INHALER IH SCH ×2 (11:13→21:54)
[2021-05-08] MEDS ORDERED: AMINO ACIDS 4.25%/D5W 1,000 ML with POTASSIUM CHLORIDE 20 MEQ IV SCH (14:11)
[2021-05-08] MEDS: KCL 10 MEQ IVPB 10 MEQ/100 ML INFUS.BAG IVPB SCH ×3 (14:15→17:43)
[2021-05-08] MEDS ORDERED: MAGNESIUM 2GM/50ML STERILE WATER IVPB IVPB ONE (14:30)
[2021-05-08] MEDS: POTASSIUM CHLORIDE 20 MEQ in AMINO ACIDS 4.25%/D5W 1,000 ML IV SCH (15:08)
[2021-05-08] MEDS: FAT EMULSION/OLIVE/SOY/PHOSPHO 250 ML IV SCH (22:28)
[2021-05-09] MEDS: POTASSIUM CHLORIDE 20 MEQ in AMINO ACIDS 4.25%/D5W 1,000 ML IV SCH ×2 (04:30→14:23)
[2021-05-09] MEDS: POLYETHYLENE GLYCOL (HEALTHYLAX) 3350 17 GM PACKET GT SCH ×3 (05:20→21:42)
[2021-05-09 08:05] LABS: ALBUMIN 1.5 g/dl (3.4-5.0); BLOOD UREA NITROGEN 48.7 mg/dL (7-18); CALCIUM 8.1 mg/dL (8.5-10.1)
[2021-05-09 08:06] LABS: MAGNESIUM 2.3 mg/dL (1.8-2.4)
[2021-05-09 08:08] LABS: CREATININE 1.1 mg/dL (0.55-1.3)
[2021-05-09 08:10] LABS: BILIRUBIN,TOTAL 0.5 mg/dL (0.2-1); TOT PROT 4.9 g/dl (6.4-8.2)
[2021-05-09] MEDS: BUDESONIDE/FORMETEROL FUMARATE 160/4.5 mcg INHALER IH SCH ×2 (12:30→23:00)
[2021-05-09] MEDS: ERTAPENEM SODIUM 1 GM in SODIUM CHLORIDE 50 ML IVPB SCH (14:19)
[2021-05-09] MEDS: AMINO ACIDS/PROTEIN HYDROLYS 30 ML LIQUID.PKT GT SCH ×2 (14:19→17:21)
[2021-05-09] MEDS: ESCITALOPRAM OXALATE 5 MG/5 ML GT SCH (14:21)
[2021-05-09] MEDS ORDERED: PT OWN MED DRAWER 7, Y5N ONE (21:43)
[2021-05-09] MEDS: FAT EMULSION/OLIVE/SOY/PHOSPHO 250 ML IV SCH (21:51)
[2021-05-10] MEDS: MORPHINE SULFATE 2 MG/ML VIAL IVPUSH PRN (00:06)
[2021-05-10] MEDS: POLYETHYLENE GLYCOL (HEALTHYLAX) 3350 17 GM PACKET GT SCH ×3 (05:24→22:39)
[2021-05-10 09:06] LABS: BASO % 1.1 % (0-2.0); EOS % 1.8 % (0-4.5); HEMATOCRIT 26.1 % (35.4-49); HEMOGLOBIN 9.1 GM/dL (11.7-16.9); LYMPH % 20.3 % (8-40); MCH 28.8 pg (25.7-33.7); MCHC 34.9 g/dl (32.0-35.9); MEAN CELL VOLUME 82.5 fl (80-96); MEAN PLT VOLUME 6.7 fl (7.5-11.1); MONO % 9.7 % (3.8-10.2); NEUT % 67.1 % (42.8-82.8); PLATELET COUNT 154 10^3/uL (134-434); RBC 3.17 M/mm3 (4.00-5.60); RDW 16.8 % (11.9-15.9); WHITE BLOOD COUNT 3.9 K/mm3 (4.0-10.0)
[2021-05-10 09:31] LABS: ALBUMIN 1.7 g/dl (3.4-5.0); BLOOD UREA NITROGEN 49.7 mg/dL (7-18); CALCIUM 8.5 mg/dL (8.5-10.1)
[2021-05-10 09:34] LABS: CREATININE 1.2 mg/dL (0.55-1.3)
[2021-05-10 09:36] LABS: BILIRUBIN,TOTAL 0.6 mg/dL (0.2-1); TOT PROT 5.5 g/dl (6.4-8.2)
[2021-05-10] MEDS ORDERED: PT OWN MED DRAWER 7, Y5N ONE ×2 (09:57→22:38)
[2021-05-10] MEDS: ERTAPENEM SODIUM 1 GM in SODIUM CHLORIDE 50 ML IVPB SCH (10:06)
[2021-05-10] MEDS: AMINO ACIDS/PROTEIN HYDROLYS 30 ML LIQUID.PKT GT SCH ×2 (10:06→18:47)
[2021-05-10] MEDS: BUDESONIDE/FORMETEROL FUMARATE 160/4.5 mcg INHALER IH SCH ×2 (10:07→22:39)
[2021-05-10] MEDS: ESCITALOPRAM OXALATE 5 MG/5 ML GT SCH (10:07)
[2021-05-10 10:27] LABS: PLATELET ESTIMATE ADEQUATE
[2021-05-10] MEDS: POTASSIUM CHLORIDE 20 MEQ in AMINO ACIDS 4.25%/D5W 1,000 ML IV SCH (12:28)
[2021-05-10] MEDS: oxyCODONE HCL 5 MG TABLET GT PRN (12:49)
[2021-05-10] MEDS: FAT EMULSION/OLIVE/SOY/PHOSPHO 250 ML IV SCH (22:39)
[2021-05-11] MEDS: ONDANSETRON 4 MG/2 ML VIAL IVPUSH PRN ×2 (04:54→23:05)
[2021-05-11] MEDS: POLYETHYLENE GLYCOL (HEALTHYLAX) 3350 17 GM PACKET GT SCH ×3 (06:03→21:37)
[2021-05-11] MEDS: AMINO ACIDS/PROTEIN HYDROLYS 30 ML LIQUID.PKT GT SCH ×2 (09:01→17:22)
[2021-05-11] MEDS ORDERED: PT OWN MED DRAWER 7, Y5N ONE ×2 (10:32→15:43)
[2021-05-11] MEDS: ESCITALOPRAM OXALATE 5 MG/5 ML GT SCH ×2 (10:47→15:45)
[2021-05-11] MEDS: ERTAPENEM SODIUM 1 GM in SODIUM CHLORIDE 50 ML IVPB SCH (10:47)
[2021-05-11] MEDS: BUDESONIDE/FORMETEROL FUMARATE 160/4.5 mcg INHALER IH SCH ×2 (10:49→21:40)
[2021-05-11] MEDS: POTASSIUM CHLORIDE 20 MEQ in AMINO ACIDS 4.25%/D5W 1,000 ML IV SCH (10:49)
[2021-05-11] MEDS: oxyCODONE HCL 5 MG TABLET GT PRN (15:46)
[2021-05-12] MEDS: oxyCODONE HCL 5 MG TABLET GT PRN ×2 (00:09→21:08)
[2021-05-12] MEDS: POLYETHYLENE GLYCOL (HEALTHYLAX) 3350 17 GM PACKET GT SCH ×3 (05:31→21:09)
[2021-05-12 08:30] LABS: HEMOGLOBIN 7.9 GM/dL (11.7-16.9); MCH 28.5 pg (25.7-33.7); MCHC 34.3 g/dl (32.0-35.9); MEAN CELL VOLUME 83.1 fl (80-96); MEAN PLT VOLUME 6.4 fl (7.5-11.1); PLATELET COUNT 155 10^3/uL (134-434); RBC 2.77 M/mm3 (4.00-5.60); WHITE BLOOD COUNT 4.3 K/mm3 (4.0-10.0)
[2021-05-12 08:49] LABS: ALBUMIN 1.8 g/dl (3.4-5.0); CALCIUM 8.3 mg/dL (8.5-10.1)
[2021-05-12 08:50] LABS: BLOOD UREA NITROGEN 48.8 mg/dL (7-18)
[2021-05-12 08:53] LABS: CREATININE 1.3 mg/dL (0.55-1.3)
[2021-05-12 08:54] LABS: BILIRUBIN,TOTAL 0.5 mg/dL (0.2-1); TOT PROT 5.6 g/dl (6.4-8.2)
[2021-05-12 09:26] LABS: ANISOCYTOSIS 2+; MACROCYTOSIS 0; PLATELET ESTIMATE NORMAL
[2021-05-12] MEDS ORDERED: PT OWN MED DRAWER 7, Y5N ONE (10:36)
[2021-05-12] MEDS: ERTAPENEM SODIUM 1 GM in SODIUM CHLORIDE 50 ML IVPB SCH (10:38)
[2021-05-12] MEDS: ESCITALOPRAM OXALATE 5 MG/5 ML GT SCH (10:38)
[2021-05-12] MEDS: AMINO ACIDS/PROTEIN HYDROLYS 30 ML LIQUID.PKT GT SCH ×2 (10:38→18:44)
[2021-05-12] MEDS: BUDESONIDE/FORMETEROL FUMARATE 160/4.5 mcg INHALER IH SCH ×2 (10:39→21:09)
[2021-05-12] MEDS: FERROUS SO4 300 MG/5 ML ORAL SOLN UNIT DOSE CUPS GT SCH (21:08)
[2021-05-13] MEDS: POLYETHYLENE GLYCOL (HEALTHYLAX) 3350 17 GM PACKET GT SCH ×3 (06:31→22:00)
[2021-05-13] MEDS: AMINO ACIDS/PROTEIN HYDROLYS 30 ML LIQUID.PKT GT SCH ×2 (08:04→17:08)
[2021-05-13] MEDS: BUDESONIDE/FORMETEROL FUMARATE 160/4.5 mcg INHALER IH SCH ×2 (10:35→22:01)
[2021-05-13] MEDS: ESCITALOPRAM OXALATE 5 MG/5 ML GT SCH (10:35)
[2021-05-13] MEDS: ERTAPENEM SODIUM 1 GM in SODIUM CHLORIDE 50 ML IVPB SCH (10:35)
[2021-05-13] MEDS: FERROUS SO4 300 MG/5 ML ORAL SOLN UNIT DOSE CUPS GT SCH ×2 (10:35→22:01)
[2021-05-14] MEDS: POLYETHYLENE GLYCOL (HEALTHYLAX) 3350 17 GM PACKET GT SCH ×2 (05:58→14:51)
[2021-05-14 07:59] LABS: HEMATOCRIT 22.8 % (35.4-49); MCH 29.2 pg (25.7-33.7); MCHC 35.3 g/dl (32.0-35.9); MEAN CELL VOLUME 82.8 fl (80-96); MEAN PLT VOLUME 6.4 fl (7.5-11.1); PLATELET COUNT 172 10^3/uL (134-434); RBC 2.75 M/mm3 (4.00-5.60); RDW 16.7 % (11.9-15.9); WHITE BLOOD COUNT 6.9 K/mm3 (4.0-10.0)
[2021-05-14 08:58] LABS: CALCIUM 8.6 mg/dL (8.5-10.1)
[2021-05-14 08:59] LABS: BLOOD UREA NITROGEN 39.3 mg/dL (7-18)
[2021-05-14] MEDS: AMINO ACIDS/PROTEIN HYDROLYS 30 ML LIQUID.PKT GT SCH ×2 (09:00→17:19)
[2021-05-14 09:02] LABS: CREATININE 1.4 mg/dL (0.55-1.3)
[2021-05-14 09:03] LABS: BILIRUBIN,TOTAL 0.5 mg/dL (0.2-1); TOT PROT 5.8 g/dl (6.4-8.2)
[2021-05-14] MEDS: ERTAPENEM SODIUM 1 GM in SODIUM CHLORIDE 50 ML IVPB SCH (10:34)
[2021-05-14] MEDS ORDERED: oxyCODONE HCL 5 MG TABLET PO PRN (11:02)
[2021-05-14] MEDS: BUDESONIDE/FORMETEROL FUMARATE 160/4.5 mcg INHALER IH SCH (11:06)
[2021-05-14] MEDS: FERROUS SO4 300 MG/5 ML ORAL SOLN UNIT DOSE CUPS GT SCH (11:06)
[2021-05-14] MEDS: ESCITALOPRAM OXALATE 5 MG/5 ML GT SCH (11:06)
[2021-05-14] MEDS ORDERED: oxyCODONE HCL 5 MG TABLET GT PRN (11:31)
[2021-05-14 12:26] VITALS: BP 131/81; PULSE 105; TEMP 98.3
== END 2021-05-14 17:00 | DRG 871 ==
LOC: JER 22:28 → JERBED 04-25 04:15 → JICU 04-25 06:57 → J4W 04-28 21:17 → J4S 05-08 18:16
PROVIDERS: ADMIT Internal Medicine Pulmonary Disease; ATTEND Internal Medicine
PROC: 0T2BX0Z Change Drainage Device in Bladder, External Approach (ICD-10-PCS; principal; 2021-05-02)
PROC: 0D2DXUZ Change Feeding Device in Lower Intestinal Tract, External Approach (ICD-10-PCS; 2021-05-07)
DX: A41.89 Other specified sepsis (principal); J18.9 Pneumonia, unspecified organism; N17.9 Acute kidney failure, unspecified; E87.2 Acidosis; K94.13 Enterostomy malfunction; E87.0 Hyperosmolality and hypernatremia; K21.9 Gastro-esophageal reflux disease without esophagitis; R13.10 Dysphagia, unspecified; R10.9 Unspecified abdominal pain; R79.89 Other specified abnormal findings of blood chemistry; R50.9 Fever, unspecified; R00.0 Tachycardia, unspecified; K22.2 Esophageal obstruction; D69.6 Thrombocytopenia, unspecified; D64.9 Anemia, unspecified; J40 Bronchitis, not specified as acute or chronic; E66.9 Obesity, unspecified; N40.0 Benign prostatic hyperplasia without lower urinary tract symptoms; E88.09 Other disorders of plasma-protein metabolism, not elsewhere classified; I12.9 Hypertensive chronic kidney disease with stage 1 through stage 4 chronic kidney disease, or unspecified chronic kidney disease; N18.9 Chronic kidney disease, unspecified; B96.1 Klebsiella pneumoniae [K. pneumoniae] as the cause of diseases classified elsewhere; B96.20 Unspecified Escherichia coli [E. coli] as the cause of diseases classified elsewhere; E87.6 Hypokalemia; Z93.4 Other artificial openings of gastrointestinal tract status; Z93.1 Gastrostomy status; Z85.01 Personal history of malignant neoplasm of esophagus; Z86.711 Personal history of pulmonary embolism; Z68.37 Body mass index [BMI] 37.0-37.9, adult
CPT/HCPCS: 36415; 36430; 36511; 36600; 49451; 70490-TC; 71045-TC-FY; 71250-TC; 73090-TC-LT-FY; 74018-TC-FY; 74176-TC; 74220-TC-FY; 74240-TC-FY; 76775-TC; 80048; 80053; 81003; 82542; 82570; 82728; 82803; 83036; 83540; 83550; 83605; 83615; 83735; 83880; 83930; 83935; 84100; 84156; 84300; 84439; 84443; 84484; 85025; 85027; 85045; 85384; 85610; 85730; 86022; 86850; 86900; 86901; 86922; 87040; 87070; 87186; 87205; 87804; 87880; 87899; 93005; 93010; 93306-TC; 94640; 97162-GP; 99285-25; C9803; J0131; J1644; P9038; P9058; U0003; U0005